=== PATIENT | male | born 1960 | race Native Hawaiian/Other Pacific Islander ===

== ENCOUNTER 2018-09-14 05:37 | Emergency (ER) | payer OTHER ==
[2018-09-14 05:59] VITALS: TEMP 97.7
--- NOTE | 2018-09-14 06:25 | ED PDOC ---
HPI: Back <Cathy Murcia - Last Filed: 09/14/18 06:41> Additional Complaint(s): 58 year old Male with no significant PMHx presents with ER complaints of worsening right sided mid back pain (10/10 at times) since 1:30 am this morning. Patient reports pain was there for last 2 days. Reports can't take full breath due to pain and reports pain is worse with right arm movement. Patient was recently treated with [id number] for URI symptoms. Denies any chest pain, headache, dizziness, nausea, vomiting, dysuria, hematuria or abdominal pain. Denies any rash. Denies any injury or lifting heavy objects. Patient took ibuprofen 400 mg last night with no relief. Denies any numbness, tingling or weakness in the leg. PMD: Oniel Buck <Sultan Eliu - Last Filed: 09/14/18 07:03> Time Seen by Provider: 09/14/18 06:12 Chief Complaint (Nursing): Back Pain Past Medical History Vital Signs: Last Vital Signs Temp 97.7 F 09/14/18 05:53 Pulse 75 09/14/18 05:53 Resp 16 09/14/18 05:53 BP 161/95 H 09/14/18 05:53 Pulse Ox 98 09/14/18 06:38 <Cathy Murcia - Last Filed: 09/14/18 06:41> Vital Signs: Last Vital Signs Temp 97.7 F 09/14/18 05:53 Pulse 75 09/14/18 05:53 Resp 16 09/14/18 05:53 BP 161/95 H 09/14/18 05:53 Pulse Ox 98 09/14/18 05:53 - Surgical History Surgical History: Denies: No Surg Hx - Family History Family History: States: No Known Family Hx <Sultan Eliu - Last Filed: 09/14/18 07:03> - Home Medications Home Medications: Ambulatory Orders Medication Instructions Recorded Naproxen 500 mg PO BID #14 tablet 09/14/18 - Allergies Allergies/Adverse Reactions: Allergies Allergy/AdvReac Type Severity Reaction Status Date / Time No Known Allergies Allergy Verified 09/14/18 05:59 Review of Systems ROS Statement: Except As Marked, All Systems Reviewed And Found Negative Constitutional: Negative for: Fever, Chills Cardiovascular: Negative for: Chest Pain, Palpitations Respiratory: Positive for: Cough. Negative for: Wheezing Gastrointestinal: Negative for: Nausea, Vomiting, Abdominal Pain Genitourinary Male: Negative for: Dysuria Skin: Negative for: Rash <Sultan Eliu - Last Filed: 09/14/18 07:03> Physical Exam - Physical Exam Appears: Positive for: Uncomfortable (due to pain) Head Exam: Positive for: ATRAUMATIC, NORMOCEPHALIC Skin: Positive for: Normal Color, Warm Eye Exam: Positive for: Normal appearance Neck: Positive for: Normal, Supple Cardiovascular/Chest: Positive for: Regular Rate, Rhythm. Negative for: Murmur Respiratory: Positive for: Normal Breath Sounds, Other (local tenderness at right mid posterior axillary line. No rash seen.). Negative for: Accessory Muscle Use, Crackles, Rales, Rhonchi, Wheezing, Respiratory Distress Gastrointestinal/Abdominal: Positive for: Bowel Sounds, Soft. Negative for: Tenderness Extremity: Positive for: Normal ROM. Negative for: Calf Tenderness Neurologic/Psych: Positive for: Alert, Oriented <Sultan Eliu - Last Filed: 09/14/18 07:03> - ECG O2 Sat by Pulse Oximetry: 98 - Radiology X-Ray: Interpreted by Ri X-Ray Interpretation: No Acute Disease - Progress ED Course And Treament: 58 yo male presents with worsening right sided mid back pain since 1:30 am this morning. Plan: CXR Toradol 60 mg IM Flexeril 10 mg po Re-evaluate time: 6:54 CXR shows no acute cardiopulmonary disease. No rib fx seen (official read pending) Patient reports back pain is better but not resolved completely Patient's back pain likely secondary to costochondritis Patient is advised to take naproxen 500 mg po bid with food Patient is stable to discharge home Advised to f/u with PMD in 2-3 days Return to ER if worsening pain or develop any new symptoms. Plan discussed with Dr. Murcia <Sultan Eliu - Last Filed: 09/14/18 07:03> Medical Decision Making Medical Decision Making: Patient seen and evaluated at bedside with resident, including HPI and exam. Agree with assessment, plan and discharge. <Cathy Murcia Last Filed: 09/14/18 06:41> Disposition <Cathy Murcia Last Filed: 09/14/18 06:41> - Patient ED Disposition Is Patient to be Admitted: No - Disposition Disposition: Routine/Home Disposition Time: 07:00 <Sultan Eliu - Last Filed: 09/14/18 07:03> - Clinical Impression Clinical Impression: Back pain, Costochondritis, acute - Disposition Referrals: Oniel Oropeza MD [Medical Doctor] - Condition: STABLE Prescriptions: Naproxen 500 mg PO BID #14 tablet Instructions: Upper Back Pain (DC), Costochondritis (DC) Forms: [employer] (Turkish) Print Language: [place]
[2018-09-14 07:21] VITALS: BP 131/86; PULSE 69; RESP 19; O2SAT 99
--- NOTE | 2018-09-14 14:07 | RAD ---
Date of service: 09/14/2018 HISTORY: Right sided mid back pain COMPARISON: No prior. TECHNIQUE: Chest PA and lateral FINDINGS: LUNGS: No active pulmonary disease. PLEURA: No significant pleural effusion identified. No pneumothorax apparent. CARDIOVASCULAR: No aortic atherosclerotic calcification present. Normal cardiac size. No pulmonary vascular congestion. OSSEOUS STRUCTURES: No significant abnormalities. VISUALIZED UPPER ABDOMEN: Normal. OTHER FINDINGS: None. IMPRESSION: No active disease.
== END 2018-09-14 07:43 | disposition home or self-care (01) ==
LOC: H.ER 05:37
DX: M54.9 Dorsalgia, unspecified (principal); M94.0 Chondrocostal junction syndrome [Tietze]
CPT/HCPCS: 71046; 96372; 99283; J1885